=== PATIENT | female | born 1990 | race Caucasian/White ===

== ENCOUNTER 2017-07-06 03:03 | Outpatient (CLI) | payer MEDICAID ==
[~2017-07-06] VITALS: Ht 152.4 cm; Wt 72.7 kg
[2017-07-06 03:43] VITALS: BP 106/56; PULSE 86; RESP 18
[2017-07-06] MEDS ORDERED: PREN-6 PO (03:57)
[2017-07-06] MEDS ORDERED: CALC600T5 PO (03:57)
[2017-07-06] MEDS ORDERED: AMPI500C9 PO (03:57)
[2017-07-06] MEDS ORDERED: LACTATED RINGER'S 1,000 ML IV ONE (04:00)
[2017-07-06] MEDS ORDERED: LACTATED RINGER'S 1,000 ML IV SCH (04:00)
--- NOTE | 2017-07-06 05:26 | RADRPT ---
PROCEDURE: OB ultrasound for biophysical profile CLINICAL INDICATION: Poor tone. TECHNIQUE: Multiple sonographic images of the pelvis were obtained. Transabdominal views of the g ravid uterus are available for review. The images were reviewed on a PACS workstation. COMPARISON: None FINDINGS: breathing movement = 2/2 tone = 2/2 motion = 2/2 CHRISTINE = 2/2 CHRISTINE = 13.3 cm Single live intrauterine with cardiac activity of 136 bpm. position is cephal ic. The placenta is anterior. The cervix is closed with a length of 3.2 cm. IMPRESSION: 1. Single live intrauterine gestation. 2. Biophysical profile = 8/8. 3. CHRISTINE = 13.3 cm. RPTAT: HH .Elina Yeh MD, Date Time Electronically viewed and signed by .Elina Yeh MD, MD on 07/06/2017 05:26 .G/
[2017-07-06 06:10] LABS: BASOPHILS % 0.2 % (0.0-2.0); EOSINOPHILS # 0.1 10^3/ul (0.0-0.5); EOSINOPHILS % 0.7 % (0.0-7.0); HEMATOCRIT 32.7 % (37.0-47.0); HEMOGLOBIN 10.8 g/dl (12.0-16.0); LYMPHOCYTES # 1.5 10^3/ul (0.8-2.9); LYMPHOCYTES % 19.1 % (15.0-51.0); MEAN CORPUSCULAR HEMOGLOBIN 30.3 pg (29.0-33.0); MEAN CORPUSCULAR VOLUME 91.6 fl (82.0-101.0); MEAN PLATELET VOLUME 11.3 fl (7.4-10.4); MONOCYTE # 0.6 10^3/ul (0.3-0.9); MONOCYTES % 7.3 % (0.0-11.0); NEUTROPHIL # 5.8 10^3/ul (1.6-7.5); NEUTROPHILS % 72.2 % (39.0-77.0); PLATELET COUNT 219 10^3/UL (140-415); RED BLOOD COUNT 3.57 10^6/ul (4.20-5.40); RED CELL DISTRIBUTION WIDTH 13.4 % (11.5-14.5); WHITE BLOOD COUNT 8.1 10^3/ul (4.8-10.8)
[2017-07-06 06:49] LABS: ADD UMIC NO; UR ASCORBIC ACID NEGATIVE (NEGATIVE); UR BILIRUBIN (Dip) NEGATIVE (NEGATIVE); UR BLOOD (Dip) NEGATIVE (NEGATIVE); UR CLARITY CLEAR (CLEAR); UR COLOR STRAW (YELLOW); UR GLUCOSE (Dip) NEGATIVE (NEGATIVE); UR KETONES (Dip) NEGATIVE (NEGATIVE); UR LEUKOCYTE ESTERASE (Dip) NEGATIVE Leu/ul (NEGATIVE); UR NITRITE (Dip) NEGATIVE (NEGATIVE); UR SPECIFIC GRAVITY (Dip) 1.005 (1.003-1.030); UR TOTAL PROTEIN (Dip) NEGATIVE (NEGATIVE); UR UROBILINOGEN (Dip) NEGATIVE (NEGATIVE)
--- NOTE | 2017-07-06 07:15 | TRIAGE ---
OB Triage Datetime Report Generated by CPN: 07/06/2017 07:15 Datetime: 07/06/2017 06:39 Stage of : OB Triage Monitor Mode: External Quality: Mild Pattern: Normal: <= 5 Contractions in 10 Minutes Resting Tone Olin: Relaxed Heart Rate FHR Baseline Rate: 140 Monitor Mode: External US Pain Assessment Pain Scale: 1 Pain Presence: Intermittent Pain Type: Cramping Pain Location: Abdomen Datetime: 07/06/2017 06:15 Stage of : OB Triage Heart Rate FHR Baseline Rate: 150 Monitor Mode: External US Datetime: 07/06/2017 05:52 Stage of : OB Triage Monitor Mode: External Quality: Mild Pattern: Normal: <= 5 Contractions in 10 Minutes Resting Tone Olin: Relaxed Heart Rate FHR Baseline Rate: 140 Monitor Mode: External US Datetime: 07/06/2017 04:51 Stage of : OB Triage Monitor Mode: External Quality: Mild Pattern: Normal: <= 5 Contractions in 10 Minutes Resting Tone Olin: Relaxed Heart Rate FHR Baseline Rate: 135 Monitor Mode: External US FHR Baseline Changes: No Baseline Change Variability: Moderate 6-25 bpm Accelerations: 15X15 Decelerations: None Category: Category I Vaginal Exam Dilatation (cms): 0.0 Effacement (%): 0 Station: -3 Exam By: E Srinivasa Membrane Status: Intact Amniotic Fluid Amount: None Vaginal Bleeding: None Cervix, Consistency: Moderate Cervix, Position: Midposition Datetime: 07/06/2017 04:20 Stage of : OB Triage Datetime: 07/06/2017 04:13 Membrane Status: Intact Datetime: 07/06/2017 04:06 Labor Evaluation Frequency: 6-10 Monitor Mode: External Quality: Mild Pattern: Normal: <= 5 Contractions in 10 Minutes Resting Tone Olin: Relaxed Datetime: 07/06/2017 03:58 EGA: 31.1 Datetime: 07/06/2017 03:53 Stage of : OB Triage Monitor Mode: External Pattern: Normal: <= 5 Contractions in 10 Minutes Resting Tone Olin: Relaxed Heart Rate FHR Baseline Rate: 135 Monitor Mode: External US FHR Baseline Changes: No Baseline Change Variability: Moderate 6-25 bpm Accelerations: 15X15 Decelerations: None Category: Category I Pain Assessment Pain Scale: 2 Pain Presence: Intermittent Pain Type: Cramping Pain Location: Abdomen Datetime: 07/06/2017 03:30 Time of Arrival: 07/06/2017 03:00 Arrived By: Wheelchair Arrived From: Home Chief Complaint: c/o cramping and "baby moving too much".. States has been on ampicillin 500m g q6 x 4 days for UTI Movement: Present Contractions: Irregular Time Contractions Began: 07/06/2017 01:00 Contractions: Q5 Rupture of Membranes: Denies Vaginal Bleeding: None Vaginal Discharge: Denies Recent Sexual Intercouse: Denies Abdominal Trauma: Not Applicable Patient Complaints: Cramping Time Provider Notified: 07/06/2017 04:20 Provider Notified: Dr Mendoza Initial Plan: EFM,UA,CVL,SVE,CBC,BPP, IV Datetime: 07/06/2017 03:19 Stage of : OB Triage Maternal Assessment Level of Consciousness: Fully Conscious Headache: Denies Blurred Vision: No Respiratory Effort: Unlabored Nausea/Vomiting: Denies RUQ Epigastric Pain: Denies Facial Edema: None Labor Evaluation Frequency: placed Monitor Mode: External Resting Tone Olin: Relaxed Monitor Mode: External US Comments: FHT 140 Pain Assessment Pain Scale: 2 Pain Presence: Intermittent Pain Type: Cramping Pain Location: Abdomen
--- NOTE | 2017-08-14 20:26 | PN ---
Triage Information Date/Time Date of Visit 07/06/2017 Reason for visit: labor Weeks of Gestation 32 weeks /Para Disposition: Discharge Assessment/Plan No sign of labor monitoring reassuring NIKITA BARBA MD Aug 14, 2017 20:26
== END 2017-07-06 07:20 | disposition home or self-care (01) ==
LOC: OBT 03:03 → L-D 03:04 → OBT 07:20
PROVIDERS: ATTEND Obstetrics & Gynecology
DX: O47.03 False labor before 37 completed weeks of gestation, third trimester (principal); Z3A.32 32 weeks gestation of pregnancy
CPT/HCPCS: 36415; 76817; 76818; 81003; 85025; 96360; J7120; Z7500; G0463

== ENCOUNTER 2017-09-08 08:00 | Inpatient (IN) | payer MEDICAID ==
[~2017-09-08] VITALS: Ht 154.9 cm; Wt 79.9 kg
[~2017-09-08 08:00] MED LIST: AMPI500C9 PO; CALC600T5 PO; CARBOPROST 250 MCG INJ ONE; PREN-6 PO
[2017-09-08 08:19] VITALS: Ht 154.9 cm; Wt 79.9 kg
[2017-09-08 08:20] VITALS: BP 124/74; RESP 16
[2017-09-08] MEDS ORDERED: CARBOPROST 250 MCG INJ IM PRN (08:30)
[2017-09-08] MEDS ORDERED: LIDOCAINE 1% (MPF) 30 ML INJ INJ PRN (08:30)
[2017-09-08] MEDS ORDERED: METHYLERGONOVINE 0.2 MG INJ IM PRN (08:30)
[2017-09-08] MEDS ORDERED: MISOPROSTOL 200 MCG TAB PR PRN (08:30)
[2017-09-08] MEDS ORDERED: OXYTOCIN 30 UNITS/LR 500 ML IV PRN (08:30)
[2017-09-08] MEDS ORDERED: IBUPROFEN 600 MG TAB PO PRN (08:30)
[2017-09-08] MEDS ORDERED: BUTORPHANOL 2 MG INJ IV PRN (08:30)
[2017-09-08] MEDS ORDERED: OXYTOCIN 30 UNITS/LR 500 ML IV SCH ×2 (08:30)
[2017-09-08] MEDS: LACTATED RINGER'S 1,000 ML IV SCH ×3 (08:37→23:20)
[2017-09-08] MEDS: MISOPROSTOL 25 MCG CAPSULE PO SCH ×4 (09:28→21:30)
[2017-09-08 09:47] LABS: BASOPHILS % 0.3 % (0.0-2.0); EOSINOPHILS # 0.2 10^3/ul (0.0-0.5); EOSINOPHILS % 2.9 % (0.0-7.0); HEMATOCRIT 33.6 % (37.0-47.0); HEMOGLOBIN 11.3 g/dl (12.0-16.0); LYMPHOCYTES # 1.3 10^3/ul (0.8-2.9); LYMPHOCYTES % 16.4 % (15.0-51.0); MEAN CORPUSCULAR HEMOGLOBIN 29.7 pg (29.0-33.0); MEAN CORPUSCULAR HGB CONC 33.6 g/dl (32.0-37.0); MEAN CORPUSCULAR VOLUME 88.2 fl (82.0-101.0); MEAN PLATELET VOLUME 12.8 fl (7.4-10.4); MONOCYTE # 0.5 10^3/ul (0.3-0.9); MONOCYTES % 6.9 % (0.0-11.0); NEUTROPHIL # 5.8 10^3/ul (1.6-7.5); NEUTROPHILS % 73.1 % (39.0-77.0); PLATELET COUNT 148 10^3/UL (140-415); RED BLOOD COUNT 3.81 10^6/ul (4.20-5.40); RED CELL DISTRIBUTION WIDTH 14.6 % (11.5-14.5); WHITE BLOOD COUNT 7.9 10^3/ul (4.8-10.8)
[2017-09-08 10:23] LABS: INR 0.82; PROTIME 11.4 Sec (11.9-14.9); PT RATIO 0.9
[2017-09-08 10:24] LABS: PARTIAL THROMBOPLASTIN TIME 25.8 Sec (25.0-35.0)
--- NOTE | 2017-09-08 18:09 | HP ---
Date/Time of Note Date/Time of Note DATE: 09/08/17 TIME: 18:06 OB - History Hx of Present Chief Complaint: induction of labor Estimated Due Date: Sep 06, 2017 : 1 Para: 0 Spontaneous : 0 Therapeutic : 0 Care: Good Care Ultrasounds: Normal mid trimester US Obstetrical Complications: None Medical Complications: None Past Family/Social History * Past Medical, Surgical, Family and Obstetric Histories reviewed from chart. GBS Status: Negative OB Admission Exam Vital Signs Vital Signs Vital Signs Date Time Temp Pulse Resp B/P Pulse Ox O2 Delivery O2 Flow Rate FiO2 09/08/17 08:20 98.7 16 124/74 Room Air Physical Exam HEENT: WNL Heart: Rhythm Normal Lungs: Clear, Equal Abdomen: WNL Extremities: Normal Reflexes: Normal Cervical Dilatation: Fingertip Effacement: 25% Station: -1 Membranes: Intact Heart Rate: 120's Accelerations: Accelerations Present Decelerations: No Decelerations Varibility: Moderate Last 72 hours Lab Results CBC & BMP 09/08/17 08:35 OB Assessment/Plan Reason for admission: induction of labor Plan: Induction Induction Method: per Misoprostol Protocol NIKITA BARBA MD Sep 08, 2017 18:09
[2017-09-09] MEDS: MISOPROSTOL 25 MCG CAPSULE PO SCH ×3 (01:27→09:00)
[2017-09-09] MEDS: LACTATED RINGER'S 1,000 ML IV SCH ×3 (06:52→21:56)
[2017-09-09] MEDS: OXYTOCIN 30 UNITS/LR 500 ML IV SCH (10:37)
[2017-09-09 14:51] LABS: BASOPHILS % 0.3 % (0.0-2.0); EOSINOPHILS # 0.2 10^3/ul (0.0-0.5); EOSINOPHILS % 2.5 % (0.0-7.0); HEMATOCRIT 33.9 % (37.0-47.0); HEMOGLOBIN 11.3 g/dl (12.0-16.0); LYMPHOCYTES # 1.5 10^3/ul (0.8-2.9); LYMPHOCYTES % 20.6 % (15.0-51.0); MEAN CORPUSCULAR HEMOGLOBIN 29.4 pg (29.0-33.0); MEAN CORPUSCULAR HGB CONC 33.3 g/dl (32.0-37.0); MEAN CORPUSCULAR VOLUME 88.3 fl (82.0-101.0); MEAN PLATELET VOLUME 12.9 fl (7.4-10.4); MONOCYTE # 0.5 10^3/ul (0.3-0.9); MONOCYTES % 7.3 % (0.0-11.0); PLATELET COUNT 132 10^3/UL (140-415); RED BLOOD COUNT 3.84 10^6/ul (4.20-5.40); RED CELL DISTRIBUTION WIDTH 14.6 % (11.5-14.5); WHITE BLOOD COUNT 7.3 10^3/ul (4.8-10.8)
[2017-09-09 15:12] LABS: ALBUMIN 2.9 g/dl (3.3-4.9); ALBUMIN/GLOBULIN RATIO 0.96; BILIRUBIN,INDIRECT 0.2 mg/dl (0-1.1); BILIRUBIN,TOTAL 0.2 mg/dl (0.2-1.3); CALCIUM 8.8 mg/dl (8.4-10.2); CREATININE 0.71 mg/dl (0.44-1.00); POTASSIUM 4.1 mmol/L (3.5-5.1); TOTAL PROTEIN 5.9 g/dl (6.1-8.1); URIC ACID 5.4 mg/dl (3.1-7.9)
[2017-09-09 15:24] LABS: ADD UMIC NO; UR ASCORBIC ACID NEGATIVE (NEGATIVE); UR BILIRUBIN (Dip) NEGATIVE (NEGATIVE); UR BLOOD (Dip) NEGATIVE (NEGATIVE); UR CLARITY CLEAR (CLEAR); UR COLOR YELLOW (YELLOW); UR GLUCOSE (Dip) NEGATIVE (NEGATIVE); UR KETONES (Dip) NEGATIVE (NEGATIVE); UR LEUKOCYTE ESTERASE (Dip) NEGATIVE Leu/ul (NEGATIVE); UR NITRITE (Dip) NEGATIVE (NEGATIVE); UR SPECIFIC GRAVITY (Dip) 1.009 (1.003-1.030); UR TOTAL PROTEIN (Dip) NEGATIVE (NEGATIVE); UR UROBILINOGEN (Dip) 1+ mg/dL (NEGATIVE)
[2017-09-09] MEDS ORDERED: PANTOPRAZOLE 40 MG INJ IV ONE (17:00)
[2017-09-09] MEDS ORDERED: FAMOTIDINE 20 MG INJ IV SCH (19:02)
[2017-09-09] MEDS ORDERED: MAGNESIUM SULFATE 4 GM/100 ML 100 ML IV SCH (23:30)
[2017-09-09 23:45] LABS: BASOPHILS % 0.4 % (0.0-2.0); EOSINOPHILS # 0.2 10^3/ul (0.0-0.5); EOSINOPHILS % 2.1 % (0.0-7.0); HEMATOCRIT 33.2 % (37.0-47.0); HEMOGLOBIN 11.1 g/dl (12.0-16.0); LYMPHOCYTES # 1.6 10^3/ul (0.8-2.9); LYMPHOCYTES % 16.5 % (15.0-51.0); MEAN CORPUSCULAR HEMOGLOBIN 29.8 pg (29.0-33.0); MEAN CORPUSCULAR HGB CONC 33.4 g/dl (32.0-37.0); MEAN CORPUSCULAR VOLUME 89.2 fl (82.0-101.0); MEAN PLATELET VOLUME 12.5 fl (7.4-10.4); MONOCYTE # 0.7 10^3/ul (0.3-0.9); MONOCYTES % 6.9 % (0.0-11.0); NEUTROPHILS % 73.8 % (39.0-77.0); PLATELET COUNT 130 10^3/UL (140-415); RED BLOOD COUNT 3.72 10^6/ul (4.20-5.40); RED CELL DISTRIBUTION WIDTH 14.6 % (11.5-14.5); WHITE BLOOD COUNT 9.5 10^3/ul (4.8-10.8)
[2017-09-10] MEDS: MAGNESIUM SULFATE 20 GM/500 ML 500 ML IV SCH ×3 (00:05→19:55)
[2017-09-10 00:06] LABS: ALBUMIN/GLOBULIN RATIO 0.9; BILIRUBIN,INDIRECT 0.4 mg/dl (0-1.1); BILIRUBIN,TOTAL 0.4 mg/dl (0.2-1.3); CALCIUM 8.9 mg/dl (8.4-10.2); CREATININE 0.69 mg/dl (0.44-1.00); POTASSIUM 3.7 mmol/L (3.5-5.1); TOTAL PROTEIN 6.3 g/dl (6.1-8.1); URIC ACID 5.4 mg/dl (3.1-7.9)
[2017-09-10 00:08] LABS: CALCIUM 8.9 mg/dl (8.4-10.2); CREATININE 0.68 mg/dl (0.44-1.00); PHOSPHORUS 3.8 mg/dl (2.5-4.9); POTASSIUM 3.7 mmol/L (3.5-5.1)
[2017-09-10] MEDS: OXYTOCIN 30 UNITS/LR 500 ML IV SCH ×2 (01:02→13:27)
[2017-09-10] MEDS: LACTATED RINGER'S 1,000 ML IV SCH (10:05)
[2017-09-10] MEDS: DEXTROSE 5%-LR 1,000 ML IV SCH ×2 (13:26→21:30)
[2017-09-10] MEDS ORDERED: FENTAnyl 2MCG/ML-ROPIV 0.2% 100 ML ONE (15:26)
[2017-09-10] MEDS ORDERED: NALOXONE (0.4 MG/ML) INJ IV PRN ×2 (16:30→22:00)
[2017-09-10] MEDS ORDERED: FENTAnyl 2MCG/ML-ROPIV 0.2% 100 ML BAG EPI SCH (16:30)
[2017-09-10] MEDS ORDERED: DIPHENHYDRAMINE 50 MG INJ IV PRN ×3 (16:30→22:00)
[2017-09-10] MEDS ORDERED: ONDANSETRON 4 MG INJ IV PRN ×3 (16:30→22:00)
[2017-09-10] MEDS ORDERED: CEFAZOLIN 2 GM/50 ML (PMX) 50 ML IV SCH (20:00)
[2017-09-10] MEDS ORDERED: LIDOCAINE 2%/EPI 30 ML INJ ONE (20:33)
[2017-09-10] MEDS ORDERED: KETOROLAC 30 MG INJ ONE (20:39)
[2017-09-10] MEDS ORDERED: morphine SULFATE/PF (10 MG/10 ML) INJ ONE (20:39)
[2017-09-10] MEDS ORDERED: METOCLOPRAMIDE 10 MG INJ ONE (20:40)
--- NOTE | 2017-09-10 20:42 | QN ---
Documentation Comment Patient was given Cytotec follwed by oxytocin. Patient had AROM. Patient has progressed to 3 cm dilation but there has been no further progress. Patient is counseled. Patient desires primary . NIKITA BARBA MD Sep 10, 2017 20:42
[2017-09-10] MEDS ORDERED: PROPOFOL 20 ML ONE (21:37)
--- NOTE | 2017-09-10 21:48 | OPR ---
Operative Report Planned Procedure Procedure date Sep 10, 2017 Procedure(s) Primary low transverse Performed by Nikita Barba MD Street Sweeper Operator Dr Johnson Anesthesiologist: NAVI DELGADO MD Pre-procedure diagnosis Arrest of dilation Anesthesia Type: epidural Post-Procedure Post-procedure diagnosis Same Findings Live Baby [X], Apgars [8] and [9] Estimated Blood Loss: 600 - 700 mls (600 ml) Specimen(s) placenta Grafts/Implant(s) none Complication(s) none Pt Condition post procedure: stable Disposition: PACU Procedure Description After epidural anesthesia had been dosed and tested, the patient was placed supine on the Operating Room table and prepped and draped in the usual sterile fashion for a section. A Pfannenstiel incision was made through the abdomen and carried down to the level of the fascia. The fascia was incised transversely and then the rectus muscle was dissected off the fascia and split bluntly in the midline. The peritoneum was the entered bluntly. The bladder flap was created and then a low segment transverse incision was made with a knife on the uterus until the amniotic fluid was encountered. The incision was widened with bandage scissors. A hand was inserted elevating the vertex and then the head delivered with assistance of fundal pressure.. The nares and oropharynx were bulb suctioned, and the remainder of the infant was delivered out of the maternal abdomen. . The cord was doubly clamped and cut, and the handed off to the awaiting resuscitation team including who was present for delivery. The placenta was then manually extracted and the interior uterus was cleaned with a dry lap sponge. The uterus was exteriorized , and the incision of the uterus closed with a running interlocking stitch of Monocryl suture. The uterus was replaced in the maternal abdomen. The abdomen was cleared of clots. The fascia was closed with a running suture of #1 Vicryl suture meeting in the midline. The subcutaneous tissue was made hemostatic with Bovie cautery, and the skin approximated using donato. The patient tolerated the procedure well. All sponge and instrument counts were correct. She was taken to the recovery room in stable condition. NIKITA BARBA MD Sep 10, 2017 21:48
[2017-09-10] MEDS ORDERED: morphine 2 MG INJ IV PRN ×2 (22:00)
[2017-09-10] MEDS ORDERED: morphine (1 MG/ML) 10ML SYRINGE IV PRN ×3 (22:00)
[2017-09-10] MEDS ORDERED: morphine 4 MG/ML VIAL IV PRN (22:00)
[2017-09-10] MEDS ORDERED: MAGNESIUM SULFATE 4 GM/100 ML 100 ML IV ONE (23:00)
[2017-09-11] VITALS (17 sets, daily range): BP systolic 101–122; BP diastolic 56–81; PULSE 83–101; RESP 16–20
[2017-09-11] MEDS ORDERED: OXYTOCIN 30 UNITS/LR 500 ML IV SCH (00:07)
[2017-09-11] MEDS ORDERED: MISOPROSTOL 200 MCG TAB PR PRN (00:30)
[2017-09-11] MEDS ORDERED: OXYCODONE/ACETAMINOPHEN (5/325) TAB PO PRN ×2 (00:30)
[2017-09-11] MEDS ORDERED: OXYTOCIN 30 UNITS/LR 500 ML IV PRN (00:30)
[2017-09-11] MEDS ORDERED: LANOLIN 7 GM TUBE TOP PRN (00:30)
[2017-09-11] MEDS ORDERED: CARBOPROST 250 MCG INJ IM PRN (00:30)
[2017-09-11] MEDS ORDERED: MAGNESIUM SULFATE 20 GM/500 ML 500 ML IV SCH (01:47)
[2017-09-11] MEDS: KETOROLAC 30 MG INJ IV PRN ×2 (05:07→20:42)
[2017-09-11] MEDS: LACTATED RINGER'S 1,000 ML IV SCH ×4 (05:45→23:05)
--- NOTE | 2017-09-11 08:07 | PN ---
Date/Time of Note Date/Time of Note DATE: 09/11/17 TIME: 08:05 Assessment/Plan VTE Prophylaxis VTE Prophylaxis Intervention: ambulation Lines/Catheters IV Catheter Type (from Nrsg): Peripheral IV Subjective 24 Hr Interval Summary Free Text/Dictation Anesthesia note: A 27 year old female s/p duramorph.pod #1 is doing fine, pain is controlled, no itching, headache, back pain or deficit. care per surgery team Exam/Review of Systems Vital Signs Vitals Vital Signs Date Time Temp Pulse Resp B/P Pulse Ox O2 Delivery O2 Flow Rate FiO2 09/11/17 06:30 97 18 105/57 09/11/17 05:55 97 21 09/11/17 04:30 98.2 Room Air Intake and Output 09/10/17 09/10/17 09/11/17 15:00 23:00 07:00 Intake Total 1130 ml 3152 ml 600 ml Output Total 850 ml 600 ml 500 ml Balance 280 ml 2552 ml 100 ml Results Result Diagram: 09/09/17 2336 09/09/17 2336 Results 24 hrs Laboratory Tests Test 09/10/17 12:18 09/10/17 18:23 09/11/17 00:46 Magnesium Level 6.1 *H 6.3 *H 6.2 *H Medications Medications Current Medications Ketorolac Tromethamine (Toradol) 30 mg Q6H PRN IV PAIN Last administered on t 05:07; Admin Dose 30 MG; Start 09/10/17 at 22:00; Stop 09/11/17 at 21: 59 Morphine Sulfate (morphine) 2 mg Q2 PRN IV BREAKTHROUGH PAIN; Start 09/10/17 at 22:00; Stop 09/11/17 at 21:59 Morphine Sulfate (morphine) 2 mg Q3H PRN IV PAIN LEVEL 1-5; Start 09/10/17 at 22:00; Stop 09/11/17 at 21:59 Morphine Sulfate (morphine) 4 mg Q3H PRN IV PAIN LEVEL 6-10; Start 09/10/17 at 22:00; Stop 09/11/17 at 21:59 Diphenhydramine HCl (Benadryl) 25 mg Q6H PRN IV ITCHING; Start 09/10/17 at 22: 00; Stop 09/11/17 at 21:59 Ondansetron HCl 4 mg 4 mg Q6H PRN IV NAUSEA AND/OR VOMITING; Start 09/10/17 at 22:00; Stop 09/11/17 at 21:59 Lactated Ringer's 1,000 ml @ 125 mls/hr Q8H IV ; Start 09/11/17 at 00:07 Oxytocin/Lactated Ringer's 500 ml @ 50 mls/hr Q10H IV Last administered on 02:48; Admin Dose 50 MLS/HR; Start 09/11/17 at 00:07; Stop 09/11/17 at 10:06 Oxycodone/ Acetaminophen (Percocet (5/ 325)) 1 tab Q4H PRN PO PAIN LEVEL 4-6; Start 09/11/17 at 00:30 Oxycodone/ Acetaminophen (Percocet (5/ 325)) 2 tab Q4H PRN PO PAIN LEVEL 7-10; Start 09/11/17 at 00:30 Ibuprofen (Motrin) 800 mg Q8 PO ; Start 09/11/17 at 22:00 Simethicone (Mylicon) 160 mg Q8H PRN PO DISTENSION/GAS/BLOATING; Start at 00:30 Senna/Docusate Sodium (Senokot-S) 1 tab BID PO ; Start 09/11/17 at 09:00 Diphtheria/ Tetanus/Acell Pertussis 0.5 ml 0.5 ml ONCE ONCE IM* ; Start at 09:00; Stop 09/13/17 at 09:01 Oxytocin/Lactated Ringer's 500 ml @ 0 mls/hr ONCE PRN IV For Hemorrhage Management; Start 09/11/17 at 00:30 Carboprost Tromethamine (Hemabate) 250 mcg ONCE PRN IM VAGINAL BLEEDING; Start 09/11/17 at 00:30 Misoprostol 1000 mcg 1,000 mcg ONCE PRN [place] VAGINAL BLEEDING; Start 09/11/17 at 00:30 Magnesium Sulfate (Magnesium Sulfate 20 Gm/500 ml) 500 ml @ 50 mls/hr Q10H IV Last administered on 09/11/17 05:36; Admin Dose 50 MLS/HR; Start 09/11/17 at 01:47 Influenza Virus Vaccine (Fluzone) 0.5 ml ONCE ONCE IM* ; Start 09/12/17 at 09: 00; Stop 09/12/17 at 09:01 NAVI DELGADO MD Sep 11, 2017 08:07
[2017-09-11 09:49] LABS: BASOPHILS % 0.2 % (0.0-2.0); EOSINOPHILS % 0.4 % (0.0-7.0); HEMATOCRIT 23.2 % (37.0-47.0); LYMPHOCYTES # 1.4 10^3/ul (0.8-2.9); LYMPHOCYTES % 12.5 % (15.0-51.0); MEAN CORPUSCULAR HEMOGLOBIN 30.4 pg (29.0-33.0); MEAN CORPUSCULAR HGB CONC 34.5 g/dl (32.0-37.0); MEAN CORPUSCULAR VOLUME 88.2 fl (82.0-101.0); MEAN PLATELET VOLUME 12.6 fl (7.4-10.4); MONOCYTE # 0.8 10^3/ul (0.3-0.9); MONOCYTES % 7.3 % (0.0-11.0); NEUTROPHIL # 8.9 10^3/ul (1.6-7.5); NEUTROPHILS % 79.2 % (39.0-77.0); PLATELET COUNT 132 10^3/UL (140-415); RED BLOOD COUNT 2.63 10^6/ul (4.20-5.40); RED CELL DISTRIBUTION WIDTH 14.9 % (11.5-14.5); WHITE BLOOD COUNT 11.2 10^3/ul (4.8-10.8)
[2017-09-11] MEDS: SENNA/DOCUSATE NA (8.6MG/50MG) TAB PO SCH ×2 (10:08→20:42)
--- NOTE | 2017-09-11 19:49 | QN ---
Documentation Comment No complaint Afebrile VSS Abdomen soft ND POD #1 Stable Ambulate Advance diet. NIKITA BARBA MD Sep 11, 2017 19:49
[2017-09-11] MEDS: FERROUS SULFATE (EC) 325 MG TAB PO SCH (20:42)
[2017-09-11] MEDS: IBUPROFEN 800 MG TAB PO SCH (22:00)
[2017-09-12 03:20] VITALS: BP 108/53; PULSE 88; RESP 19
[2017-09-12] MEDS: IBUPROFEN 800 MG TAB PO SCH ×3 (05:47→21:31)
[2017-09-12 08:00] VITALS: BP 105/65; PULSE 73; RESP 18
[2017-09-12] MEDS: LACTATED RINGER'S 1,000 ML IV SCH ×2 (08:07→16:07)
[2017-09-12] MEDS ORDERED: INFLUENZA VIRUS VACCINE 0.5 ML (DISPENSING) IM* ONE (09:00)
[2017-09-12] MEDS: FERROUS SULFATE (EC) 325 MG TAB PO SCH ×3 (09:36→21:31)
[2017-09-12] MEDS: SENNA/DOCUSATE NA (8.6MG/50MG) TAB PO SCH ×2 (09:36→21:31)
[2017-09-12 15:39] VITALS: BP 117/75; PULSE 81; RESP 18
[2017-09-12 19:30] VITALS: BP 117/65; PULSE 91; RESP 19
--- NOTE | 2017-09-12 21:10 | DS ---
Date/Time of Note Date/Time of Note DATE: 09/12/17 TIME: 21:09 Obstetrical Discharge Record Final Diagnosis Final Diagnosis: Term delivered Section Section: Primary Primary Indication Arrest of dilation Condition on Discharge Physical Assessment Voiding: Yes Bowel Movement: Yes Breast: Soft, non-tender, Filling Fundus: Firm Abdomen and Incision: Incision intact Calf Tenderness: No Patient Condition: Stable NIKITA BARBA MD Sep 12, 2017 21:10
[2017-09-13 03:30] VITALS: BP 108/71; PULSE 92; RESP 19
[2017-09-13] MEDS: IBUPROFEN 800 MG TAB PO SCH ×2 (05:46→13:37)
[2017-09-13] MEDS ORDERED: DIPHTH/TET/ACEL PERTUSS (ADULT) 0.5 ML VIAL IM* ONE (09:00)
[2017-09-13 09:10] VITALS: BP 103/67; PULSE 80; RESP 18
[2017-09-13] MEDS: FERROUS SULFATE (EC) 325 MG TAB PO SCH ×2 (09:11→13:37)
[2017-09-13] MEDS: SENNA/DOCUSATE NA (8.6MG/50MG) TAB PO SCH (09:11)
== END 2017-09-13 17:10 | disposition home or self-care (01) | DRG 766 ==
LOC: L-D 08:03 → PP1 09-11 00:17
PROVIDERS: ADMIT Obstetrics & Gynecology; ATTEND Obstetrics & Gynecology
PROC: 3E033VJ Introduction of Other Hormone into Peripheral Vein, Percutaneous Approach (ICD-10-PCS; 2017-09-10)
PROC: 10D00Z1 Extraction of Products of Conception, Low, Open Approach (ICD-10-PCS; principal; 2017-09-10 21:30)
DX: O75.82 Onset (spontaneous) of labor after 37 completed weeks of gestation but before 39 completed weeks gestation, with delivery by (planned) cesarean section (principal); Z37.0 Single live birth; Z3A.39 39 weeks gestation of pregnancy
CPT/HCPCS: 59025; 62319; 76815; 76819; 80053; 80069; 81003; 83735; 84560; 85025; 85610; 85730; 86592; 86900; 86901; 87340; 90686; 90715; 94760; 99464; C9113; J0690; J1885; J2210; J2274; J2405; J2590; J2765; J3010; J3475; J7120; J7121